=== PATIENT | male | born 2000 | race Caucasian/White ===

== ENCOUNTER → 2024-12-30 18:44 | Outpatient (REF) | payer BC, SELFPAY | LOC: RAD 18:44 | PROVIDERS: ATTENDING PHYSICIAN Family Medicine | DX: M54.42 Lumbago with sciatica, left side (principal) | CPT/HCPCS: 72110 ==

== ENCOUNTER → 2025-01-02 07:42 | Outpatient (REF) | payer BC, SELFPAY | LOC: EMG 07:42 | PROVIDERS: ATTENDING PHYSICIAN Family Medicine; FAMILY PHYSICIAN Family Medicine | DX: M54.42 Lumbago with sciatica, left side (principal); R20.0 Anesthesia of skin | CPT/HCPCS: 95886; 95910 ==